=== PATIENT | female | born 1975 | race Caucasian/White ===

== ENCOUNTER 2017-05-14 09:47 | Day surgery (SDC) | payer OTHER ==
[2017-05-09 15:07] VITALS: BMI 63.3
--- NOTE | 2017-05-14 09:16 | P.GSHP ---
History of Present Illness H&P Date: 05/14/17 CHIEF COMPLAINT: GERD HISTORY OF PRESENT ILLNESS: The patient is a 41-year-old female who presents reports gastroesophageal reflux disease. Upper endoscopy was offered for further evaluation and management. PAST MEDICAL HISTORY: Please see list. PAST SURGICAL HISTORY: Please see list. MEDICATIONS: Please see list. ALLERGIES: Please see list. SOCIAL HISTORY: No illicit drug use FAMILY HISTORY: No reports of Crohn disease or ulcerative colitis. REVIEW OF ORGAN SYSTEMS: CONSTITUTIONAL: No reports of fevers or chills. GI: Denies any blood in stools or constipation. PHYSICAL EXAM: VITAL SIGNS: Stable GENERAL: Well-developed and pleasant in no acute distress. HEENT: No scleral icterus. Extraocular movements grossly intact. Moist buccal mucosa. NECK: Supple without lymphadenopathy. CHEST: Unlabored respirations. Equal bilateral excursions. CARDIOVASCULAR: Regular rate and rhythm. Distal 2+ pulses. ABDOMEN: Soft, nondistended. MUSCULOSKELETAL: No clubbing, cyanosis, or edema. ASSESSMENT: 1. Gastroesophageal reflux disease PLAN: 1. Recommend proceeding with an upper endoscopy Past Medical History Past Medical History: GERD/Reflux, Hypertension Additional Past Medical History / Comment(s): HTN no longer on Rx History of Any Multi-Drug Resistant Organisms: None Reported Past Surgical History: No Surgical Hx Reported Past Anesthesia/Blood Transfusion Reactions: No Reported Reaction Additional Past Anesthesia/Blood Transfusion Reaction / Comment(s): Never has had anesthesia or blood transfusion Smoking Status: Never smoker - Past Family History Mother Family Medical History: No Reported History Father Family Medical History: Cancer, Deep Vein Thrombosis (DVT) Additional Family Medical History / Comment(s): skin Medications and Allergies Home Medications Medication Instructions Recorded Confirmed Type Acetaminophen [Tylenol Arthritis] 650 mg PO TID PRN 05/09/17 05/09/17 History Phentermine HCl [Adipex-P] 37.5 mg PO DAILY 05/09/17 05/09/17 History Sucralfate [Carafate] 1 gm PO BID 05/09/17 05/09/17 History buPROPion XL [Wellbutrin Xl] 300 mg PO QAM 05/09/17 05/09/17 History Allergies Allergy/AdvReac Type Severity Reaction Status Date / Time latex Allergy Itching Verified 05/09/17 15:08
[~2017-05-14 09:47] MED LIST: LACTATED RINGERS 1,000 ML IV SCH
[2017-05-14 10:19] VITALS: RESP 18
[2017-05-14] MEDS ORDERED: LIDOCAINE 1% 20 ML VIAL (10MG/ML) FOR IV START INTRADERMA ONE (10:24)
[2017-05-14] MEDS ORDERED: PROPOFOL 10 MG/ML 20 ML VIAL IV ONE (10:45)
--- NOTE | 2017-05-14 11:03 | P.PCN ---
Date of Procedure: 05/14/17 Preoperative Diagnosis: Postoperative Diagnosis: Procedure(s) Performed: Implants: Indications for Procedure: Operative Findings: Description of Procedure: PREOPERATIVE DIAGNOSIS: Gastroesophageal reflux disease. Morbid obesity. POSTOPERATIVE DIAGNOSIS: Morbid obesity. Gastritis. Gastroesophageal reflux disease. Diaphragmatic hiatal hernia without obstruction. OPERATION: Esophagogastroduodenoscopy with biopsies along antrum. SURGEON: Katie Taylor MD ANESTHESIA: MAC. INDICATIONS: The patient is a 41-year-old female who presents with a history of reflux disease. Benefits and risks of the procedure were described. Informed consent was obtained. DESCRIPTION: The patient was brought into the endoscopy suite and laid in the left lateral decubitus position. An Olympus gastroscope was passed along the posterior oropharynx down to the distal esophagus where the squamocolumnar junction was encountered at 33 cm from the incisors. The stomach was entered and no bile reflux was found. Additional findings are listed below. Biopsies with cold forceps were obtained of the antrum. The first through third portion of the duodenum was examined and unremarkable. Retroflexion of the scope confirmed Hill grade 4 lower esophageal valve. The squamocolumnar junction demostrated LA grade A erosive esophagitis. The stomach was desufflated. The patient tolerated the procedure well. FINDINGS: Squamocolumnar junction 33 cm from the incisors. Diaphragmatic hiatus at 38 cm. Hiatal hernia 5 cm. Hill grade 4 lower esophageal valve. LA grade A erosive esophagitis. No active duodenitis. Chronic gastritis. RECOMMENDATIONS: Continue medical therapy. Further recommendations pending results of pathology report. Upper endoscopy as needed. Will benefit from antireflux surgical procedure Plan - Discharge Summary New Discharge Prescriptions: No Action Acetaminophen [Tylenol Arthritis] 650 mg PO TID PRN PRN Reason: Pain buPROPion XL [Wellbutrin Xl] 300 mg PO QAM Sucralfate [Carafate] 1 gm PO BID Phentermine HCl [Adipex-P] 37.5 mg PO DAILY Discharge Medication List Acetaminophen [Tylenol Arthritis] 650 mg PO TID PRN 05/09/17 [History] Phentermine HCl [Adipex-P] 37.5 mg PO DAILY 05/09/17 [History] Sucralfate [Carafate] 1 gm PO BID 05/09/17 [History] buPROPion XL [Wellbutrin Xl] 300 mg PO QAM 05/09/17 [History] Follow up Appointment(s)/Referral(s): Katie Taylor MD [STAFF PHYSICIAN] - 05/29/17 ([facility] Patient Instructions/Handouts: Gastroesophageal Reflux Disease (GEN), Hiatal Hernia (GEN) Discharge Disposition: HOME SELF-CARE
[2017-05-14 11:31] VITALS: BP 115/67; PULSE 72
== END 2017-05-14 11:58 | disposition home or self-care (01) ==
LOC: ORWHC2ENDO 09:47
PROVIDERS: ATTEND Surgery Plastic and Reconstructive Surgery
DX: K44.9 Diaphragmatic hernia without obstruction or gangrene (principal); K21.9 Gastro-esophageal reflux disease without esophagitis; E66.01 Morbid (severe) obesity due to excess calories; Z68.44 Body mass index [BMI] 60.0-69.9, adult; Z79.899 Other long term (current) drug therapy; Z91.040 Latex allergy status
CPT/HCPCS: 43239; 81025; 88305; 88342

== ENCOUNTER → 2017-10-02 | Outpatient (CLI) | payer OTHER ==
[2017-10-02 11:32] VITALS: BP 171/83; PULSE 121; RESP 20; TEMP 98.6; BMI 60.8
[2017-10-02 13:24] LABS: HCT 41.4 % (34.0-46.0); HGB 13.5 gm/dL (11.4-16.0); MCH 29.5 pg (25.0-35.0); MCHC 32.5 g/dL (31.0-37.0); MCV 90.7 fL (80.0-100.0); Mean Platelet Volume 6.7; Platelet Count 384 k/uL (150-450); RBC 4.57 m/uL (3.80-5.40); RDW 13.5 % (11.5-15.5); WBC 9.6 k/uL (3.8-10.6)
[2017-10-02 13:33] LABS: ALT 26 U/L (9-52); AST 18 U/L (14-36); Albumin 4.3 g/dL (3.5-5.0); Alkaline Phosphatase 94 U/L (38-126); Anion Gap 13 mmol/L; Blood Urea Nitrogen 18 mg/dL (7-17); Calcium 10.1 mg/dL (8.4-10.2); Carbon Dioxide 21 mmol/L (22-30); Chloride 107 mmol/L (98-107); Cholesterol 210 mg/dL (<200); Glucose 115 mg/dL (74-99); HDL Cholesterol 73 mg/dL (40-60); LDL Cholesterol,Calculated 108 mg/dL (0-99); Potassium 4.5 mmol/L (3.5-5.1); Sodium 141 mmol/L (137-145); Total Bilirubin 0.4 mg/dL (0.2-1.3); Total Protein 7.2 g/dL (6.3-8.2); Triglycerides 146 mg/dL (<150)
[2017-10-02 15:23] LABS: Appearance,Urine Clear (Clear); Bilirubin,Urine Negative (Negative); Blood,Urine Moderate (Negative); Color,Urine Yellow; Glucose,Urine (UA) Negative (Negative); Ketones,Urine Negative (Negative); Leukocyte Esterase,Urine Trace (Negative); Protein,Urine Negative (Negative); RBC,Urine 1 /hpf (0-5); Specific Gravity,Urine 1.002 (1.001-1.035); Squamous Epithelial Cell,Urine 2 /hpf (0-4); Urobilinogen,Urine <2.0 mg/dL (<2.0); WBC,Urine 3 /hpf (0-5)
[2017-10-02 18:58] LABS: Iron Saturation 23.03 (12.00-45.00)
[2017-10-02 19:08] LABS: Folate, Serum 8.6 ng/mL
[2017-10-02 21:04] LABS: Hemoglobin A1C 4.6 % (4.0-6.0)
[2017-10-06 17:37] LABS: Anabasine Urine <2.0 ng/mL (<2.0)
--- NOTE | 2017-11-22 20:12 | P.HPBAR ---
Bariatric H&P - History & Physicial H&P Date: 10/02/17 History & Physicial: Visit/CC: pursuing bypass Patient initial contact: Initial weight: 142.519 kg Initial weight in pounds: 314.20 Height: 5 ft 0.25 in Initial BMI: 60.8 Last weight: Current weight: 142.519 kg Current weight in pounds: 314.20 Current BMI: 60.8 [place] body weight (based on NIH guidelines): 45.926 kg Excess body weight loss: 0.0% The patient is a 42 year-old F who presents for Bariatric Assessment. hiatal hernia...5 cm....loose valve... pcp dr tejada.... february 2017. possible insulin resistance DATE OF SERVICE: 10/02/2017 REASON FOR CONSULTATION: Initial bariatric evaluation. HISTORY OF PRESENT ILLNESS: Moira Medina is a 42-year-old female who comes lifelong history of morbid obesity. Highest weight was 379 pounds. Her body mass index of 73.6. She has lost 65 pounds. Her body mass index is down to 60.9. She is undergoing medical supervised weight loss. She completed an upper endoscopy with history of diaphragmatic hiatal hernia. She also presents with severe panniculitis. Her heartburn has improved after taking omeprazole. She is status post cholecystectomy. She has developed sleep apnea including osteoarthritis from her morbid obesity. She has tried lifelong troubles with her morbid obesity. Now she is evaluated for weight loss. At her height of 5 foot 0.25 inches, her ideal body weight was 127 pounds. She is 187 pounds overweight. Her body mass index reduced from 73.6 down to 60.9. For weight loss, she is evaluating juicing. PAST MEDICAL HISTORY: 1. Morbid obesity. 2. Body mass index of 73.6. 3. Depression. 4. Gastroesophageal reflux disease. 5. Osteoarthritis of the hips. 6. Osteoarthritis of the knees. 7. Hiatal hernia. 8. Anxiety. 9. Depression. PAST SURGICAL HISTORY: 1. Upper endoscopy. 2. Cholecystectomy. HOME MEDICATIONS: 1. Wellbutrin. 2. Multivitamin 3. Osteo Bi-Flex 4. Carafate 5. Tylenol. 6. Apple cider vinegar ALLERGIES: Latex SOCIAL HISTORY: No active tobacco use. FAMILY HISTORY: No family history of ulcerative colitis disease or Crohn's disease. Family history of morbid obesity. No lupus in the family. No reports of stomach or esophageal cancer. Family history of diabetes type 2. REVIEW OF ORGAN SYSTEMS: CONSTITUTIONAL: At her height of 5 foot 0.25 inches, her ideal body weight was 127 pounds. She is 187 pounds overweight. Her body mass index reduced from 73.6 down to 60.9. Highest weight was 379 pounds. Her body mass index of 73.6. HEENT: Denies any active troubles with vision or hearing. No troubles with swallowing. ENDOCRINE: No diabetes. No hypothyroidism. CARDIOVASCULAR: No reports of palpitations or heart attacks or chest pain. RESPIRATORY: Has daytime somnolence. No asthma. GI: Denies any bright red blood per rectum. No diarrhea or constipation. MUSCULOSKELETAL: Has lower back pain and joint pain. Has osteoarthritis of the knees. NEURO: No headaches. No seizure disorders. PSYCH: No depression or suicidal ideation. RHEUMATOLOGIC: No lupus. No rheumatoid arthritis. HEMATOLOGIC: Denies any abnormal bleeding or bruising. No personal history of DVTs. SKIN: No rash. No skin cancer. PHYSICAL EXAM: VITAL SIGNS: Height 5 foot 0.25 inches, weight 314 pounds. BMI 60.9 Vital Signs Temp 98.6 F 10/02/17 11:25 Pulse 121 H 10/02/17 11:25 Resp 20 10/02/17 11:25 BP 171/83 10/02/17 11:25 Pulse Ox GENERAL: Well-developed in no acute distress. HEENT: No scleral icterus. Extraocular movements grossly intact. Hears conversational speech. No nasal drainage. NECK: Supple without lymphadenopathy. CHEST: Nonlabored respirations with equal bilateral excursions. CARDIOVASCULAR: Regular rate and regular rhythm. Distal 2+ pulses. ABDOMEN: Obese, soft, nontender, nondistended. MUSCULOSKELETAL: No clubbing, cyanosis. Gross strength 5/5 distal lower extremities. 1+ pre-tibial pitting edema. NEURO: No focal or lateralizing signs. Cranial nerves 2 through 12 grossly within normal limits. PSYCH: Appropriate affect. Alert and oriented to person, place and time. SKIN: Good skin turgor. Well perfused. ASSESSMENT: 1. Morbid obesity due to excess calories. 2. Body mass index of 73.6 to 60.9. 3. Osteoarthritis of the knees. 4. Osteoarthritis of the hips. 5. Osteoarthritis of the lower back. 6. Obstructive sleep apnea. 7. Hypertensive heart disease. 8. Bilateral lower extremity swelling. 9. Family history of morbid obesity. 10. Family history of diabetes type 2. 11. Supraventricular tachycardia. 12. Diaphragmatic hiatal hernia PLAN: 1. Surgical options including a band, gastric bypass, sleeve gastrectomy were described in detail. Alternatives such as gastric balloon including duodenal switch were described. 2. The [place] bariatric surgical collaborative data and outcomes calculator were described with surgical options. 3. Recommend a bariatric metabolic panel to evaluate for micro- including macronutrient deficiencies. 4. For history of daytime somnolence, recommend evaluation and treatment for sleep apnea. 5. Dietary surveillance and counseling was reviewed, I have asked increased protein intake to at least 75 grams daily. 6. Will need cardiac risk assessment. 7. Recommend medical risk assessment. 8. Psych assessment per insurance guidelines. 9. Follow up upon completion of upper endoscopy. 10. Recommend 12-lead EKG for supraventricular tachycardia. Thank you for this consultation. Laboratory Last Values WBC 9.6 k/uL (3.8-10.6) 10/02/17 12:32 RBC 4.57 m/uL (3.80-5.40) 10/02/17 12:32 Hgb 13.5 gm/dL (11.4-16.0) 10/02/17 12:32 Hct 41.4 % (34.0-46.0) 10/02/17 12:32 MCV 90.7 fL (80.0-100.0) 10/02/17 12:32 MCH 29.5 pg (25.0-35.0) 10/02/17 12:32 MCHC 32.5 g/dL (31.0-37.0) 10/02/17 12:32 RDW 13.5 % (11.5-15.5) 10/02/17 12:32 Plt Count 384 k/uL (150-450) 10/02/17 12:32 Sodium 141 mmol/L (137-145) 10/02/17 12:32 Potassium 4.5 mmol/L (3.5-5.1) 10/02/17 12:32 Chloride 107 mmol/L (98-107) 10/02/17 12:32 Carbon Dioxide 21 mmol/L (22-30) L 10/02/17 12:32 Anion Gap 13 mmol/L 10/02/17 12:32 BUN 18 mg/dL (7-17) H 10/02/17 12:32 Creatinine 0.88 mg/dL (0.52-1.04) 10/02/17 12:32 Est GFR (MDRD) Af Amer >60 (>60 ml/min/1.73 sqM) 10/02/17 12:32 Est GFR (MDRD) Non-Af >60 (>60 ml/min/1.73 sqM) 10/02/17 12:32 Glucose 115 mg/dL (74-99) H 10/02/17 12:[address] Glu mg/dL 85 10/02/17 12:32 Hemoglobin A1c 4.6 % (4.0-6.0) 10/02/17 12:32 Calcium 10.1 mg/dL (8.4-10.2) 10/02/17 12:32 Iron 79 ug/dL (50-170) 10/02/17 12:32 TIBC 343 ug/dL (228-460) 10/02/17 12:32 Iron Saturation 23.03 (12.00-45.00) 10/02/17 12:32 Ferritin 30.5 ng/mL (10.0-291.0) 10/02/17 12:32 Total Bilirubin 0.4 mg/dL (0.2-1.3) 10/02/17 12:32 AST 18 U/L (14-36) 10/02/17 12:32 ALT 26 U/L (9-52) 10/02/17 12:32 Alkaline Phosphatase 94 U/L (38-126) 10/02/17 12:32 Total Protein 7.2 g/dL (6.3-8.2) 10/02/17 12:32 Albumin 4.3 g/dL (3.5-5.0) 10/02/17 12:32 Triglycerides 146 mg/dL (<150) 10/02/17 12:32 Cholesterol 210 mg/dL (<200) H 10/02/17 12:32 LDL Cholesterol, Calc 108 mg/dL (0-99) H 10/02/17 12:32 HDL Cholesterol 73 mg/dL (40-60) H 10/02/17 12:32 Vitamin B1 78 ug/L (38-122) 10/02/17 12:32 Vitamin B12 424.0 pg/mL (200.0-944.0) 10/02/17 12:32 Vitamin D 25-Hydroxy 15.9 ng/mL (30.0-100.0) L 10/02/17 12:32 Folate 8.6 ng/mL 10/02/17 12:32 TSH 2.830 mIU/L (0.465-4.680) 10/02/17 12:32 Urine Color Yellow 10/02/17 15:45 Urine Appearance Clear (Clear) 10/02/17 15:45 Urine pH 6.0 (5.0-8.0) 10/02/17 15:45 Ur Specific [place] 1.002 (1.001-1.035) 10/02/17 15:45 Urine Protein Negative (Negative) 10/02/17 15:45 Urine Glucose (UA) Negative (Negative) 10/02/17 15:45 Urine Ketones Negative (Negative) 10/02/17 15:45 Urine Blood Moderate (Negative) H 10/02/17 15:45 Urine Nitrite Negative (Negative) 10/02/17 15:45 Urine Bilirubin Negative (Negative) 10/02/17 15:45 Urine Urobilinogen <2.0 mg/dL (<2.0) 10/02/17 15:45 Ur Leukocyte Esterase Trace (Negative) H 10/02/17 15:45 Urine RBC 1 /hpf (0-5) 10/02/17 15:45 Urine WBC 3 /hpf (0-5) 10/02/17 15:45 Ur Squamous Epith Cells 2 /hpf (0-4) 10/02/17 15:45 Urine Cotinine <5.0 ng/mL (<5.0) 10/02/17 15:45 Urine Nicotine <2.0 ng/mL (<2.0) 10/02/17 15:45 Urine Anabasine <2.0 ng/mL (<2.0) 10/02/17 15:45 EKG EKG PERFORMED 10/02/17 12:32 Miscellaneous Test DrugScrn,Pain Manage 10/02/17 15:45 Misc Test Result See comment 10/02/17 15:45 Cholesterol is elevated. Vitamin D is low. Urine drug screen is negative EKG reviewed and is abnormal. Past Medical History Past Medical History: GERD/Reflux Additional Past Medical History / Comment(s): Acid reflux "very little" since gallbladder removed History of Any Multi-Drug Resistant Organisms: None Reported Past Surgical History: Cholecystectomy Additional Past Surgical History / Comment(s): EGD-05/14/17, cholecystectomy Past Anesthesia/Blood Transfusion Reactions: No Reported Reaction Additional Past Anesthesia/Blood Transfusion Reaction / Comm: Never has had blood transfusion. No problems with anesthesia from cholecystectomy Past Psychological History: Anxiety, Depression Additional Psychological History / Comment(s): 09/10/17P: HAS BEEN TAKING BUPROPION (tried to go off of med). States it is working well Smoking Status: Never smoker Past Alcohol Use History: Rare Past Drug Use History: None Reported - Past Family History Mother Family Medical History: No Reported History Father Family Medical History: Cancer, Deep Vein Thrombosis (DVT) Additional Family Medical History / Comment(s): skin Surgical - Exam Vital Signs Temp Pulse Resp BP 98.6 F 121 H 20 171/83 10/02/17 11:25 10/02/17 11:25 10/02/17 11:25 10/02/17 11:25 Results - Labs 10/02/17 12:32 10/02/17 12:32 Bariatric Checklist Checklist: Plan: Checklist: EGD: 1. Hiatal hernia: 2. H. Pylori: HgbA1c: Vitamin D: Smoking: Never smoker Primary care physician referral: Dr Tejaad in [facility] Psychiatry clearance: Cardiology clearance: Sleep study: Diet journal: VTE risk score: VTE risk level: Rehab needs at discharge:
== END | disposition home or self-care (01) ==
LOC: BARWHC3 10:08
PROVIDERS: ATTEND Surgery Plastic and Reconstructive Surgery
DX: E66.01 Morbid (severe) obesity due to excess calories (principal); M16.0 Bilateral primary osteoarthritis of hip; M17.0 Bilateral primary osteoarthritis of knee; M47.816 Spondylosis without myelopathy or radiculopathy, lumbar region; G47.33 Obstructive sleep apnea (adult) (pediatric); I11.9 Hypertensive heart disease without heart failure; I47.1 Supraventricular tachycardia; K44.9 Diaphragmatic hernia without obstruction or gangrene; F32.9 Major depressive disorder, single episode, unspecified; E89.1 Postprocedural hypoinsulinemia; D50.8 Other iron deficiency anemias; E55.9 Vitamin D deficiency, unspecified; Z68.44 Body mass index [BMI] 60.0-69.9, adult; Z79.899 Other long term (current) drug therapy; Z91.040 Latex allergy status; Z02.83 Encounter for blood-alcohol and blood-drug test
CPT/HCPCS: 84425; 80061; 80053; 82607; 82728; 82746; 83540; 83550; 84443; 85027; 81001; 82306; 80307; 83036; 93005; G0480 ×2; G0463; 80323; 80356; 99201

== ENCOUNTER → 2018-02-25 | Outpatient (CLI) | payer OTHER ==
[2018-02-25 14:14] VITALS: BP 196/104; PULSE 101; RESP 16; TEMP 98.9; BMI 58.4
--- NOTE | 2018-02-25 14:38 | P.PN ---
Subjective Progress Note Date: 02/25/18 DATE OF SERVICE: 02/25/2018 HPI: She has been completing medical supervised weight loss. She has lost moderate weight. She has seen the plant tour guide. She is eager to pursue the gastric bypass. PLAN: 1. Consent reviewed for the bypass. 2. She has symptomatic hiatal hernia. Recommend fix prior to gastric bypass. 3. Went over labs. DATE OF SERVICE: 10/02/2017 REASON FOR CONSULTATION: Initial bariatric evaluation. HISTORY OF PRESENT ILLNESS: Moira Medina is a 42-year-old female who comes lifelong history of morbid obesity. Highest weight was 379 pounds. Her body mass index of 73.6. She has lost 65 pounds. Her body mass index is down to 60.9. She is undergoing medical supervised weight loss. She completed an upper endoscopy with history of diaphragmatic hiatal hernia. She also presents with severe panniculitis. Her heartburn has improved after taking omeprazole. She is status post cholecystectomy. She has developed sleep apnea including osteoarthritis from her morbid obesity. She has tried lifelong troubles with her morbid obesity. Now she is evaluated for weight loss. At her height of 5 foot 0.25 inches, her ideal body weight was 127 pounds. She is 187 pounds overweight. Her body mass index reduced from 73.6 down to 60.9. For weight loss, she is evaluating juicing. PAST MEDICAL HISTORY: 1. Morbid obesity. 2. Body mass index of 73.6. 3. Depression. 4. Gastroesophageal reflux disease. 5. Osteoarthritis of the hips. 6. Osteoarthritis of the knees. 7. Hiatal hernia. 8. Anxiety. 9. Depression. PAST SURGICAL HISTORY: 1. Upper endoscopy. 2. Cholecystectomy. HOME MEDICATIONS: 1. Wellbutrin. 2. Multivitamin 3. Osteo Bi-Flex 4. Carafate 5. Tylenol. 6. Apple cider vinegar ALLERGIES: Latex SOCIAL HISTORY: No active tobacco use. FAMILY HISTORY: No family history of ulcerative colitis disease or Crohn's disease. Family history of morbid obesity. No lupus in the family. No reports of stomach or esophageal cancer. Family history of diabetes type 2. REVIEW OF ORGAN SYSTEMS: CONSTITUTIONAL: At her height of 5 foot 0.25 inches, her ideal body weight was 127 pounds. She is 187 pounds overweight. Her body mass index reduced from 73.6 down to 60.9. Highest weight was 379 pounds. Her body mass index of 73.6. HEENT: Denies any active troubles with vision or hearing. No troubles with swallowing. ENDOCRINE: No diabetes. No hypothyroidism. CARDIOVASCULAR: No reports of palpitations or heart attacks or chest pain. RESPIRATORY: Has daytime somnolence. No asthma. GI: Denies any bright red blood per rectum. No diarrhea or constipation. MUSCULOSKELETAL: Has lower back pain and joint pain. Has osteoarthritis of the knees. NEURO: No headaches. No seizure disorders. PSYCH: No depression or suicidal ideation. RHEUMATOLOGIC: No lupus. No rheumatoid arthritis. HEMATOLOGIC: Denies any abnormal bleeding or bruising. No personal history of DVTs. SKIN: No rash. No skin cancer. PHYSICAL EXAM: VITAL SIGNS: Height 5 foot 0.25 inches, weight 314 pounds. BMI 60.9 Vital Signs Temp 98.6 F 10/02/17 11:25 Pulse 121 H 10/02/17 11:25 Resp 20 10/02/17 11:25 BP 171/83 10/02/17 11:25 Pulse Ox GENERAL: Well-developed in no acute distress. HEENT: No scleral icterus. Extraocular movements grossly intact. Hears conversational speech. No nasal drainage. NECK: Supple without lymphadenopathy. CHEST: Nonlabored respirations with equal bilateral excursions. CARDIOVASCULAR: Regular rate and regular rhythm. Distal 2+ pulses. ABDOMEN: Obese, soft, nontender, nondistended. MUSCULOSKELETAL: No clubbing, cyanosis. Gross strength 5/5 distal lower extremities. 1+ pre-tibial pitting edema. NEURO: No focal or lateralizing signs. Cranial nerves 2 through 12 grossly within normal limits. PSYCH: Appropriate affect. Alert and oriented to person, place and time. SKIN: Good skin turgor. Well perfused. ASSESSMENT: 1. Morbid obesity due to excess calories. 2. Body mass index of 73.6 to 60.9. 3. Osteoarthritis of the knees. 4. Osteoarthritis of the hips. 5. Osteoarthritis of the lower back. 6. Obstructive sleep apnea. 7. Hypertensive heart disease. 8. Bilateral lower extremity swelling. 9. Family history of morbid obesity. 10. Family history of diabetes type 2. 11. Supraventricular tachycardia. 12. Diaphragmatic hiatal hernia PLAN: 1. Surgical options including a band, gastric bypass, sleeve gastrectomy were described in detail. Alternatives such as gastric balloon including duodenal switch were described. 2. The [place] bariatric surgical collaborative data and outcomes calculator were described with surgical options. 3. Recommend a bariatric metabolic panel to evaluate for micro- including macronutrient deficiencies. 4. For history of daytime somnolence, recommend evaluation and treatment for sleep apnea. 5. Dietary surveillance and counseling was reviewed, I have asked increased protein intake to at least 75 grams daily. 6. Will need cardiac risk assessment. 7. Recommend medical risk assessment. 8. Psych assessment per insurance guidelines. 9. Follow up upon completion of upper endoscopy. 10. Recommend 12-lead EKG for supraventricular tachycardia. Thank you for this consultation. Laboratory Last Values WBC 9.6 k/uL (3.8-10.6) 10/02/17 12:32 RBC 4.57 m/uL (3.80-5.40) 10/02/17 12:32 Hgb 13.5 gm/dL (11.4-16.0) 10/02/17 12:32 Hct 41.4 % (34.0-46.0) 10/02/17 12:32 MCV 90.7 fL (80.0-100.0) 10/02/17 12:32 MCH 29.5 pg (25.0-35.0) 10/02/17 12:32 MCHC 32.5 g/dL (31.0-37.0) 10/02/17 12:32 RDW 13.5 % (11.5-15.5) 10/02/17 12:32 Plt Count 384 k/uL (150-450) 10/02/17 12:32 Sodium 141 mmol/L (137-145) 10/02/17 12:32 Potassium 4.5 mmol/L (3.5-5.1) 10/02/17 12:32 Chloride 107 mmol/L (98-107) 10/02/17 12:32 Carbon Dioxide 21 mmol/L (22-30) L 10/02/17 12:32 Anion Gap 13 mmol/L 10/02/17 12:32 BUN 18 mg/dL (7-17) H 10/02/17 12:32 Creatinine 0.88 mg/dL (0.52-1.04) 10/02/17 12:32 Est GFR (MDRD) Af Amer >60 (>60 ml/min/1.73 sqM) 10/02/17 12:32 Est GFR (MDRD) Non-Af >60 (>60 ml/min/1.73 sqM) 10/02/17 12:32 Glucose 115 mg/dL (74-99) H 10/02/17 12:[address] Glu mg/dL 85 10/02/17 12:32 Hemoglobin A1c 4.6 % (4.0-6.0) 10/02/17 12:32 Calcium 10.1 mg/dL (8.4-10.2) 10/02/17 12:32 Iron 79 ug/dL (50-170) 10/02/17 12:32 TIBC 343 ug/dL (228-460) 10/02/17 12:32 Iron Saturation 23.03 (12.00-45.00) 10/02/17 12:32 Ferritin 30.5 ng/mL (10.0-291.0) 10/02/17 12:32 Total Bilirubin 0.4 mg/dL (0.2-1.3) 10/02/17 12:32 AST 18 U/L (14-36) 10/02/17 12:32 ALT 26 U/L (9-52) 10/02/17 12:32 Alkaline Phosphatase 94 U/L (38-126) 10/02/17 12:32 Total Protein 7.2 g/dL (6.3-8.2) 10/02/17 12:32 Albumin 4.3 g/dL (3.5-5.0) 10/02/17 12:32 Triglycerides 146 mg/dL (<150) 10/02/17 12:32 Cholesterol 210 mg/dL (<200) H 10/02/17 12:32 LDL Cholesterol, Calc 108 mg/dL (0-99) H 10/02/17 12:32 HDL Cholesterol 73 mg/dL (40-60) H 10/02/17 12:32 Vitamin B1 78 ug/L (38-122) 10/02/17 12:32 Vitamin B12 424.0 pg/mL (200.0-944.0) 10/02/17 12:32 Vitamin D 25-Hydroxy 15.9 ng/mL (30.0-100.0) L 10/02/17 12:32 Folate 8.6 ng/mL 10/02/17 12:32 TSH 2.830 mIU/L (0.465-4.680) 10/02/17 12:32 Urine Color Yellow 10/02/17 15:45 Urine Appearance Clear (Clear) 10/02/17 15:45 Urine pH 6.0 (5.0-8.0) 10/02/17 15:45 Ur Specific [place] 1.002 (1.001-1.035) 10/02/17 15:45 Urine Protein Negative (Negative) 10/02/17 15:45 Urine Glucose (UA) Negative (Negative) 10/02/17 15:45 Urine Ketones Negative (Negative) 10/02/17 15:45 Urine Blood Moderate (Negative) H 10/02/17 15:45 Urine Nitrite Negative (Negative) 10/02/17 15:45 Urine Bilirubin Negative (Negative) 10/02/17 15:45 Urine Urobilinogen <2.0 mg/dL (<2.0) 10/02/17 15:45 Ur Leukocyte Esterase Trace (Negative) H 10/02/17 15:45 Urine RBC 1 /hpf (0-5) 10/02/17 15:45 Urine WBC 3 /hpf (0-5) 10/02/17 15:45 Ur Squamous Epith Cells 2 /hpf (0-4) 10/02/17 15:45 Urine Cotinine <5.0 ng/mL (<5.0) 10/02/17 15:45 Urine Nicotine <2.0 ng/mL (<2.0) 10/02/17 15:45 Urine Anabasine <2.0 ng/mL (<2.0) 10/02/17 15:45 EKG EKG PERFORMED 10/02/17 12:32 Miscellaneous Test DrugScrn,Pain Manage 10/02/17 15:45 Misc Test Result See comment 10/02/17 15:45 Cholesterol is elevated. Vitamin D is low. Urine drug screen is negative EKG reviewed and is abnormal.
== END | disposition home or self-care (01) ==
LOC: BARWHC3 12:55
PROVIDERS: ATTEND Surgery Plastic and Reconstructive Surgery
DX: E66.01 Morbid (severe) obesity due to excess calories (principal); M79.3 Panniculitis, unspecified; K21.9 Gastro-esophageal reflux disease without esophagitis; M17.0 Bilateral primary osteoarthritis of knee; M16.0 Bilateral primary osteoarthritis of hip; M19.90 Unspecified osteoarthritis, unspecified site; G47.33 Obstructive sleep apnea (adult) (pediatric); I11.9 Hypertensive heart disease without heart failure; M79.89 Other specified soft tissue disorders; I47.1 Supraventricular tachycardia; K44.9 Diaphragmatic hernia without obstruction or gangrene; F32.9 Major depressive disorder, single episode, unspecified; F41.9 Anxiety disorder, unspecified; Z83.49 Family history of other endocrine, nutritional and metabolic diseases; Z68.45 Body mass index [BMI] 70 or greater, adult; Z83.3 Family history of diabetes mellitus; Z79.899 Other long term (current) drug therapy; Z90.49 Acquired absence of other specified parts of digestive tract; Z91.040 Latex allergy status
CPT/HCPCS: 99211

== ENCOUNTER → 2018-07-02 | Outpatient (CLI) | payer OTHER ==
[2018-07-02 11:17] VITALS: BP 154/87; PULSE 83; TEMP 98.2; BMI 62.3
--- NOTE | 2018-07-02 21:46 | P.PN ---
Subjective Progress Note Date: 07/02/18 HPI: Patient follows-up 4 months following her last visit. She has gained 20+ pounds since her last visit. She was scheduled to undergo hiatal hernia repair for her severe reflux but was lost to follow up regarding pre-surgical care. ABOMEN: Unremarkable PLAN: 1. Recommend 2 week protein diet. 2. Post-bariatric diet to follow up after hiatal hernia repair to be re- scheduled. Objective - Vital Signs Vital signs: Vital Signs Temp 98.2 F 07/02/18 11:13 Pulse 83 07/02/18 11:13 Resp BP 154/87 07/02/18 11:13 Pulse Ox Intake & Output 07/02/18 07/02/18 07/03/18 06:59 18:59 06:59 Weight 145.966 kg
== END | disposition home or self-care (01) ==
LOC: BARWHC3 09:42
PROVIDERS: ATTEND Surgery Plastic and Reconstructive Surgery
DX: K21.9 Gastro-esophageal reflux disease without esophagitis (principal)
CPT/HCPCS: 99211